=== PATIENT | male | born 1990 | race Caucasian/White ===

== ENCOUNTER 2022-01-05 00:19 | Emergency (ER) | payer SELFPAY ==
[~2022-01-05] VITALS: Ht 182.9 cm; Wt 88.6 kg
[2022-01-05 01:10] VITALS: BP 124/74
== END 2022-01-05 01:10 | disposition home or self-care (01) ==
LOC: ED 00:19
DX: T16.1XXA Foreign body in right ear, initial encounter (principal); H61.22 Impacted cerumen, left ear; F17.210 Nicotine dependence, cigarettes, uncomplicated; Z79.891 Long term (current) use of opiate analgesic; Z28.310 Unvaccinated for COVID-19; W22.8XXA Striking against or struck by other objects, initial encounter

== ENCOUNTER 2022-08-05 11:50 | Emergency (ER) | payer SELFPAY ==
[~2022-08-05] VITALS: Ht 182.9 cm; Wt 81.8 kg
[~2022-08-05 11:50] MED LIST: CLINDAMYCIN 300MG PO; PREDNISONE20 MG PO
[2022-08-05 11:53] VITALS: BP 125/75
== END 2022-08-05 13:30 | disposition home or self-care (01) ==
LOC: ED 11:50
DX: T16.1XXA Foreign body in right ear, initial encounter (principal); W45.8XXA Other foreign body or object entering through skin, initial encounter